=== PATIENT | male | born 1990 | race Caucasian/White ===

== ENCOUNTER 2024-06-09 06:23 | Day surgery (SDC) | payer BC, SELFPAY ==
[2024-06-09] VITALS (8 sets, daily range): BP systolic 114–133; BP diastolic 63–91; BMI 32.1
== END 2024-06-09 16:44 | disposition home or self-care (01) ==
LOC: SDS 06:23
PROVIDERS: ATTENDING PHYSICIAN Surgery
DX: Z30.2 Encounter for sterilization (principal)
CPT/HCPCS: 55250; 88302